=== PATIENT | female | born 1960 | race African-American/Black ===

== ENCOUNTER → 2020-12-20 | Outpatient (CLI) | payer OTHER ==
[~2020-12-20] MED LIST: ALBUTEROL SULF 0.083% NEB SOLN 3 ML NEB ONE; ALBUTEROL SULFATE HFA 8GM INHALATION AEROSOL INH ONE; ALBUTEROL/IPRATROPIUM 3 ML NEB ONE; ALBUTEROL0.63 MG/3 NEB; AMLODIPINE BESY10 MG PO; B&O 60MG R/S 60 MG SUPP PR ONE; BENADRYL25 M1 PO; BENZONATATE100 MG PO; BREO ELLIPTA 11 EACH INH; BUPIVACAINE 0.25% 30ML SDV ONE; CLINDAMYCIN 300MG 50 ML IV ONE; DICYCLOMINE HCL10 MG PO; DOXYCYCLINE MO100 M1 PO; DYMISTA NASAL S23 GM INH; FAMOTIDINE20 MG PO; FLONASE ALLERG9.9 ML INH; FLUCONAZOLE100 MG PO; IOPAMIDOL 300MG/ML 50ML INFUS..BTL IV ONE; LIDOCAINE 1% W/EPINEPHRINE 20 ML VIAL ONE; OXYBUTYNIN CHLOR5 MG PO; PIPERACILLIN/TAZOBAC 3.375 GM VIAL ONE; PREDNISONE20 MG PO; RANITIDINE HCL150 MG PO; SODIUM CHLORIDE 0.9% 50ML 50 ML ONE; SYMBICORT 16010.2 GM INH; VENTOLIN HFA18 GM INH
[2020-12-20 11:54] LABS: BASOPHILS # (AUTO) 0.1 (0.0-0.1); BASOPHILS % 1.1 % (0.0-1.0); EOSINOPHILS # (AUTO) 0.4 (0.0-0.4); EOSINOPHILS % 4.7 % (0.0-6.0); HEMATOCRIT 44.5 % (34.2-44.1); HEMOGLOBIN 14.3 g/dL (12.0-16.0); LYMPHOCYTES # (AUTO) 2.7 (1.0-3.2); LYMPHOCYTES % 32.3 % (18.0-39.1); MEAN CORPUSCULAR HGB CONC 32.1 g/dL (31-35); MONOCYTES # (AUTO) 0.6 (0.2-0.8); MONOCYTES % 7.4 % (4.4-11.3); NEUTROPHILS # (AUTO) 4.5 (2.1-6.9); NEUTROPHILS % 53.9 % (38.7-80.0); PLATELET COUNT 365 x10e3/uL (140-360); RED CELL DISTRIBUTION WIDTH 13.7 % (11.7-14.4)
[2020-12-20 12:10] LABS: ANION GAP 13.9 mmol/L (8-16); BLOOD UREA NITROGEN 14 mg/dL (7-26); BUN/CREATININE RATIO 16 (6-25); CALCIUM 9.1 mg/dL (8.4-10.2); CARBON DIOXIDE 28 mmol/L (22-29); CHLORIDE 104 mmol/L (98-107); CREATININE, SERUM 0.88 mg/dL (0.57-1.11); EST GLOMERULAR FILTRATION RATE > 60 ML/MIN (60-); GLUCOSE 120 mg/dL (74-118); POTASSIUM 3.9 mmol/L (3.5-5.1); SODIUM 142 mmol/L (136-145)
== END ==
LOC: DX 12:22 → OR 12-24 05:23 → EDSTATUS 12-24 07:00
PROVIDERS: ATTEND Urology
DX: Z01.812 Encounter for preprocedural laboratory examination (principal); Z01.818 Encounter for other preprocedural examination; Z20.822 Contact with and (suspected) exposure to COVID-19; N32.0 Bladder-neck obstruction
CPT/HCPCS: 36415; 80048; 85025; 93005; U0002; J2543

== ENCOUNTER 2020-12-24 07:13 | Inpatient (IN) | payer OTHER ==
[~2020-12-24] VITALS: Ht 157.5 cm; Wt 116.1 kg
[~2020-12-24 07:13] MED LIST changes: -ALBUTEROL SULF 0.083% NEB SOLN 3 ML NEB ONE; -ALBUTEROL SULFATE HFA 8GM INHALATION AEROSOL INH ONE; -ALBUTEROL/IPRATROPIUM 3 ML NEB ONE; -B&O 60MG R/S 60 MG SUPP PR ONE; -BENZONATATE100 MG PO; -BUPIVACAINE 0.25% 30ML SDV ONE; -CLINDAMYCIN 300MG 50 ML IV ONE; -DOXYCYCLINE MO100 M1 PO; -DYMISTA NASAL S23 GM INH; -FAMOTIDINE20 MG PO; -FLONASE ALLERG9.9 ML INH; -FLUCONAZOLE100 MG PO; -IOPAMIDOL 300MG/ML 50ML INFUS..BTL IV ONE; -LIDOCAINE 1% W/EPINEPHRINE 20 ML VIAL ONE; -PIPERACILLIN/TAZOBAC 3.375 GM VIAL ONE; -PREDNISONE20 MG PO; -SODIUM CHLORIDE 0.9% 50ML 50 ML ONE; -SYMBICORT 16010.2 GM INH; -VENTOLIN HFA18 GM INH
[2020-12-24] MEDS ORDERED: DIPHENHYDRAMINE HCL INJ 50 MG/ML VIAL ONE (07:29)
[2020-12-24] MEDS ORDERED: ALBUTEROL/IPRATROPIUM 3 ML NEB NEB ONE (07:30)
[2020-12-24] MEDS ORDERED: DIPHENHYDRAMINE HCL INJ 50 MG/ML VIAL IV ONE (07:30)
[2020-12-24] MEDS ORDERED: MAGNESIUM SULFATE 2GM/50ML 50 ML IV ONE (07:30)
[2020-12-24] MEDS ORDERED: METHYLPREDNISOLONE SOD SUCC 125 MG/2ML VIAL IV ONE (07:30)
[2020-12-24] MEDS ORDERED: ALBUTEROL/IPRATROPIUM 3 ML NEB ONE (07:31)
[2020-12-24 07:36] LABS: BASOPHILS # (AUTO) 0.1 (0.0-0.1); BASOPHILS % 0.8 % (0.0-1.0); EOSINOPHILS # (AUTO) 0.6 (0.0-0.4); HEMATOCRIT 45.3 % (34.2-44.1); HEMOGLOBIN 14.4 g/dL (12.0-16.0); LYMPHOCYTES # (AUTO) 7.4 (1.0-3.2); LYMPHOCYTES % 50.2 % (18.0-39.1); MEAN CORPUSCULAR HEMOGLOBIN 27.5 pg (28-32); MEAN CORPUSCULAR HGB CONC 31.8 g/dL (31-35); MEAN CORPUSCULAR VOLUME 86.6 fL (81-99); MONOCYTES # (AUTO) 1.1 (0.2-0.8); MONOCYTES % 7.3 % (4.4-11.3); NEUTROPHILS # (AUTO) 5.4 (2.1-6.9); NEUTROPHILS % 36.5 % (38.7-80.0); PLATELET COUNT 407 x10e3/uL (140-360); RED BLOOD COUNT 5.23 x10e6/uL (3.6-5.1); RED CELL DISTRIBUTION WIDTH 13.7 % (11.7-14.4)
[2020-12-24 07:55] LABS: ABG HCO3 20 mmol/L (22-26); ABG PCO2 72 mmHg (35-45); ABG PH 7.06 (7.35-7.45); ABG PO2 93 mmHg (80-105); ABG TCO2 23
[2020-12-24 08:00] LABS: ALBUMIN 4.1 g/dL (3.5-5.0); ALBUMIN/GLOBULIN RATIO 1.1 (0.8-2.0); ANION GAP 21.4 mmol/L (8-16); CALCIUM 8.8 mg/dL (8.4-10.2); CREATININE, SERUM 1.15 mg/dL (0.57-1.11); POTASSIUM 3.4 mmol/L (3.5-5.1)
[2020-12-24 08:07] LABS: CREATINE KINASE MB 1.3 ng/mL (0-5.0)
[2020-12-24 08:53] LABS: ANION GAP 16.9 mmol/L (8-16); BLOOD UREA NITROGEN 10 mg/dL (7-26); BUN/CREATININE RATIO 9 (6-25); CALCIUM 8.5 mg/dL (8.4-10.2); CARBON DIOXIDE 21 mmol/L (22-29); CHLORIDE 106 mmol/L (98-107); CREATININE, SERUM 1.08 mg/dL (0.57-1.11); EST GLOMERULAR FILTRATION RATE > 60 ML/MIN (60-); GLUCOSE 253 mg/dL (74-118); POTASSIUM 3.9 mmol/L (3.5-5.1); SODIUM 140 mmol/L (136-145)
[2020-12-24] MEDS ORDERED: DICYCLOMINE HCL 10 MG CAP PO SCH (10:00)
[2020-12-24] MEDS ORDERED: ZOLPIDEM TARTRATE 5 MG TAB PO PRN (10:00)
[2020-12-24] MEDS ORDERED: ALBUTEROL SULF 0.083% NEB SOLN 3 ML NEB NEB PRN (10:00)
[2020-12-24 10:02] LABS: ABG HCO3 23 mmol/L (22-26); ABG PCO2 44 mmHg (35-45); ABG PH 7.33 (7.35-7.45); ABG PO2 184 mmHg (80-105); ABG TCO2 24
[2020-12-24 11:25] LABS: EOSINOPHILS % (MANUAL) 3 % (0-7); LYMPHOCYTES % (MANUAL) 27 % (19-48); MONOCYTES % (MANUAL) 11 % (3.4-9.0); NEUTROPHILS % (MANUAL) 37 % (40-74); PLATELET ESTIMATE SLIGHTLY INCREASED; PLATELET MORPHOLOGY COMMENT NORMAL; RBC MORPHOLOGY COMMENT NORMAL
[2020-12-24] MEDS: DOXYCYCLINE 100MG/NS 100ML 100 ML IV SCH ×2 (12:00→23:30)
[2020-12-24 12:13] VITALS: BP 137/65
[2020-12-24 12:22] VITALS: BP 137/65
[2020-12-24] MEDS ORDERED: SODIUM CHLORIDE 0.9% 50ML 50 ML ONE (13:14)
[2020-12-24 15:09] VITALS: BP 146/80
[2020-12-24] MEDS: BENZONATATE 100 MG CAP PO SCH (16:45)
[2020-12-24] MEDS: OXYBUTYNIN CHLORIDE 5 MG TAB PO SCH (16:45)
[2020-12-24] MEDS: FAMOTIDINE 20 MG/2 ML VIAL IV SCH (16:45)
[2020-12-24] MEDS: METHYLPREDNISOLONE SOD SUCC 125 MG/2ML VIAL IV SCH (16:45)
[2020-12-24] MEDS: BUDESONIDE/FORMOTEROL 160/4.5MCG INHALER INH SCH (20:03)
[2020-12-24 20:26] VITALS: BP 135/98
[2020-12-24 21:00] VITALS: BP 135/98
[2020-12-25] VITALS: BP 132/69
[2020-12-25] MEDS: BENZONATATE 100 MG CAP PO SCH ×2 (00:03→08:48)
[2020-12-25 04:00] VITALS: BP 121/85
[2020-12-25] MEDS: METHYLPREDNISOLONE SOD SUCC 125 MG/2ML VIAL IV SCH (05:00)
[2020-12-25 06:46] LABS: BASOPHILS % 0.1 % (0.0-1.0); HEMATOCRIT 41.3 % (34.2-44.1); HEMOGLOBIN 13.5 g/dL (12.0-16.0); LYMPHOCYTES # (AUTO) 1.5 (1.0-3.2); LYMPHOCYTES % 12.9 % (18.0-39.1); MEAN CORPUSCULAR HEMOGLOBIN 27.1 pg (28-32); MEAN CORPUSCULAR HGB CONC 32.7 g/dL (31-35); MEAN CORPUSCULAR VOLUME 82.9 fL (81-99); MONOCYTES # (AUTO) 0.4 (0.2-0.8); MONOCYTES % 3.3 % (4.4-11.3); NEUTROPHILS # (AUTO) 9.4 (2.1-6.9); NEUTROPHILS % 82.9 % (38.7-80.0); PLATELET COUNT 330 x10e3/uL (140-360); RED BLOOD COUNT 4.98 x10e6/uL (3.6-5.1); RED CELL DISTRIBUTION WIDTH 13.9 % (11.7-14.4)
[2020-12-25] MEDS: BUDESONIDE/FORMOTEROL 160/4.5MCG INHALER INH SCH (07:14)
[2020-12-25 07:43] LABS: ANION GAP 17.1 mmol/L (8-16); BLOOD UREA NITROGEN 12 mg/dL (7-26); BUN/CREATININE RATIO 14 (6-25); CALCIUM 8.9 mg/dL (8.4-10.2); CARBON DIOXIDE 18 mmol/L (22-29); CHLORIDE 108 mmol/L (98-107); CREATININE, SERUM 0.88 mg/dL (0.57-1.11); EST GLOMERULAR FILTRATION RATE > 60 ML/MIN (60-); GLUCOSE 205 mg/dL (74-118); POTASSIUM 4.1 mmol/L (3.5-5.1); SODIUM 139 mmol/L (136-145)
[2020-12-25] MEDS ORDERED: PREDNISONE 20 MG TAB PO ONE (08:00)
[2020-12-25 08:09] VITALS: BP 122/72
[2020-12-25 08:16] VITALS: BP 122/72
[2020-12-25] MEDS: FAMOTIDINE 20 MG/2 ML VIAL IV SCH (08:48)
[2020-12-25] MEDS: OXYBUTYNIN CHLORIDE 5 MG TAB PO SCH (08:48)
[2020-12-25] MEDS: DOXYCYCLINE 100MG/NS 100ML 100 ML IV SCH ×2 (10:55→11:00)
[2020-12-25] MEDS ORDERED: SODIUM CHLORIDE 0.9% 250ML 250 ML ONE (11:08)
[2020-12-25] MEDS ORDERED: PREDNISONE20 MG PO (11:26)
[2020-12-25] MEDS ORDERED: FAMOTIDINE20 MG PO (11:26)
[2020-12-25] MEDS ORDERED: DOXYCYCLINE MO100 M1 PO (11:26)
[2020-12-25 11:49] VITALS: BP 134/93
[2020-12-25] MEDS ORDERED: DOXYCYCLINE HYCLATE TABLET 100 MG TAB PO SCH (12:00)
[2020-12-26] MEDS ORDERED: PREDNISONE 20 MG TAB PO SCH (09:00)
== END 2020-12-25 12:34 | disposition home or self-care (01) | DRG 202 ==
LOC: ER 07:33 → ERHOLD 08:14 → MED/SURG2 10:11
PROVIDERS: ADMIT Internal Medicine; ATTEND Internal Medicine
DX: J45.21 Mild intermittent asthma with (acute) exacerbation (principal); J96.00 Acute respiratory failure, unspecified whether with hypoxia or hypercapnia; Z68.42 Body mass index [BMI] 45.0-49.9, adult; N39.0 Urinary tract infection, site not specified; R30.0 Dysuria; E66.01 Morbid (severe) obesity due to excess calories; N81.10 Cystocele, unspecified; R33.9 Retention of urine, unspecified; N39.46 Mixed incontinence; Z20.822 Contact with and (suspected) exposure to COVID-19
CPT/HCPCS: 36415; 36600; 71045; 80048; 80053; 82550; 82553; 82805; 82948; 83036; 84484; 85025; 93005; 94640; 94660; 94664; 99284; J1200; J2930; J7050; J7512; U0002

== ENCOUNTER → 2021-01-30 | Day surgery (SDC) | payer OTHER ==
[~2021-01-30] MED LIST changes: +ACETAMINOPHEN 1000 MG/100 ML 100 ML IV ONE; +B&O 60MG R/S 60 MG SUPP PR ONE; +BENZONATATE100 MG PO; +BUPIVACAINE 0.25% 30ML SDV ONE; +CLINDAMYCIN 300MG 50 ML IV ONE; +DEXAMETHASONE SOD PHOS INJ 4 MG/ML VIAL ONE; +DOXYCYCLINE MO100 M1 PO; +DYMISTA NASAL S23 GM INH; +ESTROGENS CONJUGATED VAGINAL CR 45 GM TUBE PV ONE; +FAMOTIDINE20 MG PO; +FENTANYL CITRATE/PF 100MCG/2 ML INJ ONE; +FLONASE ALLERG9.9 ML INH; +FLUCONAZOLE100 MG PO; +GENTAMICIN 80MG/NS 100 ML 100 ML IV ONE; +GENTAMICIN IV ONE; +GLYCOPYRROLATE INJ 0.2 MG/ML VIAL ONE; +IBUPROFEN 800MG/ 200ML 200 ML IV ONE; +INDIGOTINDISULFONATE SODIUM 8 MG/ML AMP IJ ONE; +IOPAMIDOL 300MG/ML 50ML INFUS..BTL IV ONE; +LIDOCAINE 1% W/EPINEPHRINE 20 ML VIAL ONE; +LIDOCAINE HCL (LTA) 4 ML SOLN ONE; +LIDOCAINE HCL 2% JELLY 5 ML TUBE ONE; +LIDOCAINE HCL 2% LOCAL INJ 5 ML SDV VIAL INJ ONE; +MEPERIDINE HCL INJ 25 MG/ML VIAL ONE; +MIDAZOLAM HCL 2 MG/2 ML VIAL ONE; +NEOSTIGMINE 1 MG/ML 10ML VIAL ONE; +ONDANSETRON HCL INJ 2MG/ML 2ML 2 MG/ML VIAL ONE; +POVIDONE IODINE 0.05% 0.05 % ML PO ONE; +PREDNISONE20 MG PO; +PROPOFOL IV EMULSION 10 MG/ML 20 ML VIAL ONE; +ROCURONIUM BROMIDE 10 MG/ML 5ML VIAL IV ONE; +SEVOFLURANE INHAL SOLN 250 ML PEN BTL ONE; +SILVER SULFADIAZINE 50GM CREAM TOP ONE; +SUGAMMADEX SODIUM 200 MG/2 ML VIAL IV ONE; +SYMBICORT 16010.2 GM INH; +VENTOLIN HFA18 GM INH; +[UNRECOGNIZED DRUG - OTHER] IV ONE
== END | disposition home or self-care (01) ==
LOC: OR 07:51 → MERGE 10:00
PROVIDERS: ATTEND Urology
DX: N32.0 Bladder-neck obstruction (principal); N94.10 Unspecified dyspareunia; N30.30 Trigonitis without hematuria; Q62.8 Other congenital malformations of ureter; J45.909 Unspecified asthma, uncomplicated; I10 Essential (primary) hypertension; K21.9 Gastro-esophageal reflux disease without esophagitis; Z88.0 Allergy status to penicillin; Z88.8 Allergy status to other drugs, medicaments and biological substances; Z91.041 Radiographic dye allergy status; Z01.812 Encounter for preprocedural laboratory examination; Z20.822 Contact with and (suspected) exposure to COVID-19
CPT/HCPCS: 52005; 53500; 57287; 74420; 88304; J0131; J1100; J1580; J2001 ×2; J2175; J2250; J2405; J2704; J2710; J3010; Q9967; U0002